=== PATIENT | female | born 1990 | race African-American/Black ===

== ENCOUNTER 2016-10-19 07:11 | Emergency (ER) | payer OTHER ==
[~2016-10-19] VITALS: Ht 170.2 cm; Wt 69.0 kg
[~2016-10-19 07:11] MED LIST: HYDR-3720 PO; PRED20TA PO; PYRI60TA9 PO
[2016-10-19 07:15] VITALS: Ht 170.2 cm; Wt 69.0 kg
--- NOTE | 2016-10-19 08:20 | RADRPT ---
PROCEDURE: CT brain without contrast CLINICAL INDICATION: Fall, hit back of head, headache TECHNIQUE: CT of the brain without contrast was performed on a multidetector CT scanner, with multi planar reformats. One or more of the following dose reduction techniques were used: Automated expos ure control, adjustment in mA and / or kV according to patient size, use of iterative reconstructive technique. CTDIvol = 45 mGy; DLP = 630 mGy-cm. COMPARISON: None available FINDINGS: Mild left occipital scalp swelling is identified with minimal gas consistent with laceration. No un derlying fracture is identified. No acute intracranial hemorrhage is identified. No extra-axial fl uid collection is seen. There is no mass effect. No midline shift is identified. Ventricles and sulci are within normal limits for size and configuration. The density of the brain is within normal limits. Johnson-white differentiation is preserved. Osseous structures are unremarkable. Mastoid air cells and imaged paranasal sinuses grossly clear. IMPRESSION: 1. Left occipital scalp injury, without underlying fracture or acute intracranial pathology identif ied. 2. Otherwise unremarkable noncontrast CT the brain. RPTAT: VV .Zheng Samaniego MD, MD Date Time Electronically viewed and signed by .Zheng Samaniego MD, MD on 10/19/2016 08:19 .O/
--- NOTE | 2016-10-19 08:34 | ERD ---
ER Documentation Chief Complaint Date/Time DATE: 10/19/16 TIME: 08:32 Chief Complaint lac on back of head s/p fall and hit her head on concrete , no k/o HPI 26-year-old female with a history of myasthenia gravis was walking downstairs today when her feet accidentally gave out. This is not unusual for her myasthenia gravis. She has had no worsening weakness or increasing weakness related to her myasthenia gravis recently. After falling, she hit the back of her head, but did not lose consciousness. She has had no headache, vomiting, further weakness. She did sustain a small laceration in the area. Currently the patient reports no significant head. She reports no other injuries from the fall. ROS All systems reviewed and are negative except as per history of present illness. Medications Home Meds Active Scripts Prednisone* (Prednisone*) 20 Mg Tab, 60 MG PO DAILY for 4 Days, TAB Prov:BLANCA MONCADA MD 09/30/15 Reported Medications Pyridostigmine Speonk* (Pyridostigmine Speonk*) 60 Mg Tablet, 30 MG PO QID, TAB 09/30/15 Hydrocodone Bit-Acetaminophen* (Hayes*) 7.5-325 Tablet, 1 TAB PO TID Y for PAIN , TAB 01/22/15 Allergies Allergies: Coded Allergies: No Known Allergies (Verified Allergy, Mild, 01/12/15) PMhx/Soc History of Surgery: Yes (umbilical hernia) Anesthesia Reaction: No Hx Neurological Disorder: No Hx Respiratory Disorders: No Hx Cardiac Disorders: No Hx Psychiatric Problems: No Hx Miscellaneous Medical Probl: Yes (MYASTHENIA GRAVIS) Hx Alcohol Use: No Hx Substance Use: No Hx Tobacco Use: No FmHx Noncontributory for chief complaint Physical Exam Vitals Vital Signs Date Time Temp Pulse Resp B/P Pulse Ox O2 Delivery O2 Flow Rate FiO2 10/19/16 07:15 98.0 69 18 120/66 99 Physical Exam General: well developed, well nourished, in no distress. Neuro: Normal speech, gait, balance HEENT: Patient has a small abrasion on the occipital scalp with no severe laceration. No foreign body or significant bleeding. No signs of skull fracture. Procedures/MDM Patient was taken to a room, seen and examined. Imaging: CT of the brain was appreciated with radiology Medical decision makin-year-old female presents the emergency department after a fall with a minor head injury. Patient is neurologically unchanged from baseline with a nonfocal neurologic examination. She is stable from the standpoint of her myasthenia. CT scan demonstrates no significant intracranial hemorrhage and patient has no neurologic abnormalities at this time. Patient appears to be clinically well and appropriate for outpatient care. Departure Diagnosis: Primary Impression: Fall Additional Impression: Myasthenia gravis Condition: Stable Patient Instructions: HEAD INJURY, No Wake-Up (Adult) Additional Instructions: See your doctor for follow-up as discussed. Take a copy of your test results, if appropriate, to this follow-up visit. See your doctor or return here if your symptoms do not improve as expected. At any time, please return to the emergency department for any change or worsening in her symptoms. CLAIR WAITE Oct 19, 2016 08:34
== END 2016-10-19 09:03 | disposition home or self-care (01) ==
LOC: FTE 07:11
DX: S00.01XA Abrasion of scalp, initial encounter (principal); G70.00 Myasthenia gravis without (acute) exacerbation; R51 Headache; W10.9XXA Fall (on) (from) unspecified stairs and steps, initial encounter; Y92.9 Unspecified place or not applicable
CPT/HCPCS: 70450